=== PATIENT | female | born 2000 | race Caucasian/White ===

== ENCOUNTER 2020-10-03 11:23 | Emergency (ER) | payer OTHER, SELFPAY ==
--- NOTE | 2020-10-03 11:48 | PC.NURSE ---
Patient walked out of ED without difficulty and in no distress, reports that she can just go to Urgent Care.
== END 2020-10-03 11:48 | disposition left against medical advice (07) ==
DX: Z53.21 Procedure and treatment not carried out due to patient leaving prior to being seen by health care provider (principal)
CPT/HCPCS: 99199

== ENCOUNTER 2020-10-03 11:54 | Emergency (ER) | payer OTHER, SELFPAY ==
[2020-10-03 12:04] VITALS: BP 123/67; PULSE 88; RESP 16; TEMP 36.3; O2SAT 100
--- NOTE | 2020-10-03 12:25 | ED.WOUNDLAC ---
HPI - Wound/Laceration General Chief Complaint: Animal Bite Stated Complaint: dog bite Time Seen by Provider: 10/03/20 12:07 Source: patient and RN notes reviewed Mode of arrival: ambulatory Limitations: no limitations History of Present Illness HPI narrative: Patient presents today complaining of a dog bite to her right and left leg that was sustained at 11:00 this morning. The dog that bit her was not hers. States the dog is up-to-date on its shots. Patient is up-to-date on her tetanus vaccine. She currently rates her pain 5/10. Related Data Home Medications Medication Instructions Recorded Confirmed fluticasone propionate 50 mcg INTRANASAL DAILY 10/03/20 10/03/20 sertraline 100 mg PO DAILY 10/03/20 10/03/20 Allergies Allergy/AdvReac Type Severity Reaction Status Date / Time No Known Allergies Allergy Unverified 10/03/20 12:04 Review of Systems Review of Systems: Narrative: CONSTITUTIONAL: Denies body aches, fever, chills, or sweats. EYES: Denies visual changes, redness, or discharge. ENT: Denies rhinorrhea, congestion, sore throat, or otalgia. CARDIOVASCULAR: Denies chest pain, palpitations, or edema. RESPIRATORY: Denies cough or dyspnea. GASTROINTESTINAL: Denies abdominal pain, nausea, vomiting, or diarrhea. GENITOURINARY: Denies dysuria or hematuria. SKIN: Denies rash, itching. + Dog bite MUSCULOSKELETAL: Denies back pain, joint pain, or myalgia. NEUROLOGIC: Denies headache, numbness, tingling, or weakness. PSYCH: Denies depression or anxiety. [facility] Past Medical History Medical History (Updated 10/03/20 @ 15:39 by Lyssa Burr, [facility], ) Anxiety Depression Comments At time of signature, I have reviewed and agree with nursing past medical, surgical, social and family history unless otherwise noted. Please see nursing chart for further information. There is no relevant family history pertinent to the presenting complaint Exam Narrative: Exam Narrative: GENERAL: Well-appearing, well-nourished, and in no acute distress. HEAD: Normocephalic, atraumatic. EYES: EOMI. No redness or drainage. Conjunctivae normal. ENT: Mucous membranes pink and moist. NECK: Normal AROM. CHEST: No respiratory distress. EXTREMITIES: Normal range of motion. No edema. SKIN: Warm, dry, no rash. Capillary refill normal. Normal skin turgor. Right leg: Right medial knee there is a 3 x 1 cm skin jagged partial-thickness skin avulsion. No active bleeding. Left leg: Lateral knee there is a 2 x 2 centimeter partial-thickness jagged skin avulsion with no active bleeding. This area has some surrounding ecchymosis forming. Each wound was cleansed thoroughly and dressed with a large Band-Aid. NEURO: No focal deficits. Alert and oriented x3. Gait steady. PSYCH: Normal affect. No signs of depression or anxiety. Course Vital Signs Vital signs: Vital Signs Temperature 97.3 F L 10/03/20 12:04 Pulse Rate 88 10/03/20 12:04 Respiratory Rate 16 10/03/20 12:04 Blood Pressure 123/67 10/03/20 12:04 Pulse Oximetry 100 10/03/20 12:04 Temperature 97.3 F L 10/03/20 12:04 Pulse Rate 88 10/03/20 12:04 Respiratory Rate 16 10/03/20 12:04 Blood Pressure 123/67 10/03/20 12:04 Pulse Oximetry 100 10/03/20 12:04 Reviewed. Pt has been instructed to follow up with her PCP regarding her elevated blood pressure today. MDM - Wound/Laceration Differential Diagnosis Differential diagnosis: Likely laceration, abrasion, avulsion of skin and other (Animal bite) Critical Care Time Critical Care Time Critical Care Time: No Discharge Plan Discharge Clinical Impression: Dog bite Qualifiers: Encounter type: initial encounter Qualified Code(s): W54.0XXA - Bitten by dog, initial encounter Patient Disposition: Home, Self-Care Condition: Stable Instructions: Animal Bite (ED) Additional Instructions: Your dog bites have been cleaned out and dressed. Wash with soap and water. Keep covered until scabb
== END 2020-10-03 12:34 | disposition home or self-care (01) ==
PROVIDERS: Emergency Provider Nurse Practitioner
DX: S81.051A Open bite, right knee, initial encounter (principal); S81.052A Open bite, left knee, initial encounter; W54.0XXA Bitten by dog, initial encounter; F41.9 Anxiety disorder, unspecified; F32.9 Major depressive disorder, single episode, unspecified
CPT/HCPCS: 99212; G0463